=== PATIENT | male | born 1970 | race Caucasian/White ===

== ENCOUNTER 2016-10-23 10:32 | Emergency (ER) | payer BC ==
[2016-10-23 10:44] VITALS: RESP 18; TEMP 98.1
[2016-10-23] MEDS ORDERED: HYDROmorphone 1 MG/ML 1 ML SYRINGE IVP STA (11:27)
[2016-10-23] MEDS ORDERED: LORazepam 2 MG/ML SYRINGE IV STA (11:28)
--- NOTE | 2016-10-23 11:49 | ED ---
General Adult HPI - General Chief complaint: Back Pain/Injury Stated complaint: neck and back pain Time Seen by Provider: 10/23/16 11:03 Source: patient Mode of arrival: ambulatory Limitations: no limitations - History of Present Illness Initial comments: 46-year-old male with a past medical history of cervical spinal fusion and lower back disc herniation presented for evaluation of intractable pain. He states that he is visiting from out of town and doesn't have his medication with him. This pain is consistent with his baseline pain although uncontrolled. He denies any radiating pain into his shoulders or arms. He further denies any lower extremity weakness, saddle anesthesia, or bowel/ bladder irregularities. He states that he is normally on "very powerful" pain medications at home and that the only thing that will help his symptoms today are Dilaudid. He further states that Valium is not as effective as Ativan for his symptoms. Searching through the patient's chart he has no previous visits to this facility. - Related Data Home Medications Medication Instructions Recorded Confirmed Oxymorphone HCl [Opana ER] 40 mg PO Q48H 10/23/16 10/23/16 Previous Rx's Medication Instructions Recorded oxyCODONE HCL 30 mg PO Q6HR PRN #7 tab 10/23/16 oxyCODONE HCL 30 mg PO Q6HR PRN #7 tablet 10/23/16 Allergies Allergy/AdvReac Type Severity Reaction Status Date / Time No Known Allergies Allergy Verified 10/23/16 11:04 Review of Systems ROS Statement: Those systems with pertinent positive or pertinent negative responses have been documented in the HPI. ROS Other: All systems not noted in ROS Statement are negative. Constitutional: Denies: fever, chills, weakness, weight change Eyes: Denies: eye pain, eye discharge, vision change ENT: Denies: ear pain, throat pain Respiratory: Denies: cough, dyspnea, wheezes, hemoptysis Cardiovascular: Denies: chest pain, palpitations, dyspnea on exertion Endocrine: Denies: fatigue, polydipsia, polyuria Gastrointestinal: Denies: abdominal pain, nausea, vomiting, diarrhea, constipation Genitourinary: Denies: urgency, dysuria Musculoskeletal: Reports: back pain, other (Neck pain without radiation) Skin: Denies: rash, lesions Neurological: Denies: headache, weakness, numbness, paresthesias, abnormal gait , vertigo Psychiatric: Denies: anxiety, depression Past Medical History Past Medical History: Hypertension History of Any Multi-Drug Resistant Organisms: None Reported Additional Past Surgical History / Comment(s): neck surgery Past Psychological History: Anxiety Smoking Status: Current every day smoker Past Alcohol Use History: Occasional Past Drug Use History: None Reported General Exam Limitations: no limitations General appearance: alert, in distress, other (However after leaving room patient found relaxed and laying back with his arms folded behind his head conversing calmly with his fiance) Head exam: Present: atraumatic, normocephalic Eye exam: Present: normal appearance, PERRL, EOMI ENT exam: Present: normal exam, normal oropharynx, mucous membranes moist. Absent: mucous membranes dry Neck exam: Present: tenderness. Absent: meningismus, full ROM Respiratory exam: Present: normal lung sounds bilaterally. Absent: respiratory distress, wheezes, rales, rhonchi, stridor Cardiovascular Exam: Present: normal rhythm, tachycardia. Absent: regular rate GI/Abdominal exam: Present: soft. Absent: distended, tenderness, guarding Rectal exam: Present: deferred Extremities exam: Present: normal inspection, full ROM. Absent: tenderness, normal capillary refill Back exam: Present: tenderness, paraspinal tenderness. Absent: CVA tenderness ( R) Neurological exam: Present: alert, oriented X3, CN II-XII intact, normal gait. Absent: altered Psychiatric exam: Present: normal affect, normal mood Skin exam: Present: warm, dry, intact Course Vital Signs 10/23/16 10/23/16 10:40 13:36 Temperature 98.1 F 98.1 F Pulse Rate 102 H 98 Respiratory 18 18 Rate Blood Pressure 134/97 175/118 O2 Sat by Pulse 96 100 Oximetry EKG Findings - EKG Comments: EKG Findings:: From sinus rhythm with a rate of 87 bpm, VIVIEN 124, QRS 90, QTC 433 Medical Decision Making - Medical Decision Making 46-year-old male with chronic neck and back pain presenting for treatment of worsening pain. He states that he is visiting from out of town and that he left his pain medications at home. States his pain is his baseline pain but uncontrolled and that there are no new features. Upon discussing pain management options with him he advised that many of our medications were not strong enough to adequately treat his pain and stated that he required Dilaudid and Ativan. Although the specificity of his recommendations was concerning for drug-seeking behavior, he has no previous visits to this ED for previous similar situations. We'll therefore provide him with pain control, obtain baseline labs, and reevaluate. Labs revealed no significant abnormalities. Pt stated his pain was not controlled in spite of receiving dilaudid 20-30 mins prior. He was advised to follow-up with his primary care physician but to return if his symptoms should worsen or persist. He acknowledged an understanding of this information and agreed with this plan of care - Lab Data Result diagrams: 10/23/16 11:50 10/23/16 11:50 Lab Results 10/23/16 10/23/16 Range/Units 11:50 11:50 WBC 9.5 (3.8-10.6) k/uL RBC 5.15 (4.30-5.90) m/uL Hgb 15.9 (13.0-17.5) gm/dL Hct 46.5 (39.0-53.0) % MCV 90.4 (80.0-100.0) fL MCH 30.8 (25.0-35.0) pg MCHC 34.1 (31.0-37.0) g/dL RDW 13.1 (11.5-15.5) % Plt Count 268 (150-450) k/uL Neutrophils % 67 % Lymphocytes % 23 % Monocytes % 5 % Eosinophils % 2 % Basophils % 1 % Neutrophils # 6.3 (1.3-7.7) k/uL Lymphocytes # 2.2 (1.0-4.8) k/uL Monocytes # 0.5 (0-1.0) k/uL Eosinophils # 0.2 (0-0.7) k/uL Basophils # 0.1 (0-0.2) k/uL Sodium 141 (137-145) mmol/L Potassium 4.7 (3.5-5.1) mmol/L Chloride 107 (98-107) mmol/L Carbon Dioxide 23 (22-30) mmol/L Anion Gap 11 mmol/L BUN 16 (9-20) mg/dL Creatinine 0.93 (0.66-1.25) mg/dL Est GFR (MDRD) Af Amer >60 (>60 ml/min/1.73 sqM) Est GFR (MDRD) Non-Af >60 (>60 ml/min/1.73 sqM) Glucose 96 (74-99) mg/dL Calcium 9.5 (8.4-10.2) mg/dL TSH 1.020 (0.465-4.680) mIU/L Disposition Clinical Impression: Neck pain, Back pain Disposition: HOME SELF-CARE Condition: Stable Instructions: Chronic Back Pain (ED) Additional Instructions: Please use medication as discussed. Please follow up with family doctor if symptoms have not improved over the next two days. Please return to the emergency room if your symptoms increase or worsen or for any other concerns. Prescriptions: oxyCODONE HCL 30 mg PO Q6HR PRN #7 tab PRN Reason: Pain oxyCODONE HCL 30 mg PO Q6HR PRN #7 tablet PRN Reason: Pain Referrals: Kevin Leija MD [Primary Care Provider] - 1-2 days Time of Disposition: 13:05
[2016-10-23 12:04] LABS: Basophils # (A) 0.1 k/uL (0-0.2); Basophils % (A) 1 %; CH 31.4; CHCM 34.9; Eosinophils # (A) 0.2 k/uL (0-0.7); Eosinophils % (A) 2 %; HCT 46.5 % (39.0-53.0); HDW 2.55; HGB 15.9 gm/dL (13.0-17.5); Luc # (Auto) 0.23; Luc % (Auto) 2; Lymphocytes # (A) 2.2 k/uL (1.0-4.8); Lymphocytes % (A) 23 %; MCH 30.8 pg (25.0-35.0); MCHC 34.1 g/dL (31.0-37.0); MCV 90.4 fL (80.0-100.0); Mean Platelet Volume 8.4; Monocytes # (A) 0.5 k/uL (0-1.0); Monocytes % (A) 5 %; Neutrophils # (A) 6.3 k/uL (1.3-7.7); Neutrophils % (A) 67 %; RBC 5.15 m/uL (4.30-5.90); RDW 13.1 % (11.5-15.5); WBC 9.5 k/uL (3.8-10.6); WBC (Perox) 9.22
[2016-10-23 12:13] LABS: Anion Gap 11 mmol/L; Blood Urea Nitrogen 16 mg/dL (9-20); Calcium 9.5 mg/dL (8.4-10.2); Carbon Dioxide 23 mmol/L (22-30); Chloride 107 mmol/L (98-107); Glucose 96 mg/dL (74-99); Non-African American GFR(MDRD) >60 (>60 ml/min/1.73 sqM); Potassium 4.7 mmol/L (3.5-5.1); Sodium 141 mmol/L (137-145)
[2016-10-23 13:39] VITALS: BP 175/118; PULSE 98
== END 2016-10-23 13:39 | disposition home or self-care (01) ==
LOC: EC 10:32
DX: G89.29 Other chronic pain (principal); M54.9 Dorsalgia, unspecified; M54.2 Cervicalgia; R00.0 Tachycardia, unspecified; F17.200 Nicotine dependence, unspecified, uncomplicated; Z98.1 Arthrodesis status; Z79.891 Long term (current) use of opiate analgesic
CPT/HCPCS: 99283; 96374; 96375; 36415; 93005; 80048; 84443; 85025; J2060; J1170